=== PATIENT | male | born 1975 | race Caucasian/White ===

== ENCOUNTER 2022-05-23 16:27 | Emergency (ER) | payer OTHER ==
[2022-05-23 17:00] LABS: CHLORIDE,CL 98 mmol/L (98-107); SODIUM,NA 134 mmol/L (136-145)
[2022-05-23 17:02] LABS: ANION GAP 12.2 mmol/L (5-15); ESTIMATED GFR 84 mL/min (>=60)
[2022-05-23 17:04] LABS: PTT,PARTIAL THROMBOPLSTIN TIME 20.6 SEC (20.5-30.9)
[2022-05-23] MEDS ORDERED: Lidocaine 1% 5 ML VIAL INJECT ONE (17:04)
[2022-05-23] MEDS ORDERED: Diphtheria,Pertussis(Acell),Tetanus Vaccine 0.5 ML Syringe IM ONE (17:36)
== END 2022-05-23 17:38 | disposition home or self-care (01) ==
LOC: VM.ED 16:27
DX: S06.9X9A Unspecified intracranial injury with loss of consciousness of unspecified duration, initial encounter (principal); S01.01XA Laceration without foreign body of scalp, initial encounter; S80.211A Abrasion, right knee, initial encounter; S60.511A Abrasion of right hand, initial encounter; Z23 Encounter for immunization; V86.99XA Unspecified occupant of other special all-terrain or other off-road motor vehicle injured in nontraffic accident, initial encounter; Y92.410 Unspecified street and highway as the place of occurrence of the external cause
CPT/HCPCS: 12002; 36415; 70450; 71045; 72170; 80048; 85025; 85610; 85730; 90715; 99283